=== PATIENT | male | born 1940 | race Caucasian/White ===

== ENCOUNTER 2016-05-28 18:05 | Emergency (ER) | payer OTHER ==
[~2016-05-28] VITALS: Ht 172.7 cm; Wt 74.8 kg
--- NOTE | ~2016-05-28 | EKG ---
[address] [place] [address] ELECTROCARDIOGRAM REPORT Name: CAROLYNN DE LA ROSA Room #: DEP [facility]#: [id number] Admission: 05/28/16 Attend Phys: Discharge: 05/28/16 Date of : 44 Report #: [id number] THIS RE[facility] FOR: //name[facility] Test Date: 2016-05-28 Test Time: 18:00:59 Pat Name: CAROLYNN DE LA ROSA Department: Room: Gender: M Collection Manager: REINA : 1940 Requested By: Ketan Arceo Order Number: [id number] MD: Brian Ball Measurements Intervals [place] Rate: 47 P: -11 FL: 210 QRS: -48 QRSD: 120 T: 17 QT: 505 QTc: 447 Interpretive Statements Sinus bradycardia Incomplete left bundle branch block Baseline wander in lead(s) II,III,aVF,V1,V2,V3,V4,V5,V6 No previous ECG available for comparison Electronically Signed On 05-29-2016 8:31:21 CDT by Brian Ball [email or web address] <ELECTRONICALLY SIGNED> By: Brian Ball MD, [facility] 05/29/16 0831 1800 1800 Brian Ball MD, [facility] /EPI
[~2016-05-28 18:05] MED LIST: FLOMAX0.4 MG PO; HUMALOG100 UNIT/1 SUBQ; LANTUS100 UNIT/M SUBQ; OMEPRAZOLE20 M2 PO; PRINIVIL20 MG PO; SOTALOL 120 MG120 M1 PO; ZOCOR40 MG PO
[2016-05-28 18:27] LABS: HEMATOCRIT 33.8 % (42.0-52.0); HEMOGLOBIN 11.9 gm/dL (14.0-18.0); MCH 32.4 pg (26.0-34.0); MCHC 35.2 g/dL (28.0-37.0); MCV 91.9 fL (80.0-100.0); PLATELET COUNT 159 thou/uL (150-400); RBC 3.68 mil/uL (4.50-6.00); RDW 15.2 % (10.5-14.5)
[2016-05-28 18:30] LABS: MANUAL DIFF YES
[2016-05-28 18:35] LABS: CALCIUM 8.8 mg/dL (8.5-10.1); CREATININE 1.2 mg/dL (0.6-1.3); POTASSIUM 4.1 mmol/L (3.5-5.1)
[2016-05-28 18:55] LABS: ABSOLUTE NEUTROPHILS 3.6 thou/uL (1.4-8.2); TOTAL CELL COUNT 100
[2016-05-28 19:31] VITALS: BP 152/62
== END 2016-05-28 19:33 | disposition home or self-care (01) ==
LOC: ER 18:05
PROVIDERS: Nurse Practitioner
DX: E16.2 Hypoglycemia, unspecified (principal)